=== PATIENT | female | born 1960 | race Caucasian/White ===

== ENCOUNTER → 2017-02-25 | Outpatient (CLI) | payer MEDICAID | LOC: BMCIMAGING 15:01 | PROVIDERS: ATTEND Registered Nurse | DX: D25.0 Submucous leiomyoma of uterus (principal); N83.9 Noninflammatory disorder of ovary, fallopian tube and broad ligament, unspecified ==

== ENCOUNTER → 2017-08-30 | Outpatient (CLI) | payer MEDICAID | LOC: BMCIMAGING 13:33 | PROVIDERS: ATTEND Obstetrics & Gynecology Gynecology | DX: N85.9 Noninflammatory disorder of uterus, unspecified (principal); N83.292 Other ovarian cyst, left side ==

== ENCOUNTER → 2018-04-26 | Outpatient (CLI) | payer MEDICAID | LOC: BMCIMAGING 07:32 | PROVIDERS: ATTEND Physician Assistant | DX: R14.0 Abdominal distension (gaseous) (principal) ==